=== PATIENT | female | born 1985 | race African-American/Black ===

== ENCOUNTER → 2019-10-31 | Outpatient (CLI) | payer MEDICAID | END | disposition home or self-care (01) | LOC: LAB 09:19 | PROVIDERS: ATTEND Obstetrics & Gynecology | DX: Z03.818 Encounter for observation for suspected exposure to other biological agents ruled out (principal) | CPT/HCPCS: C9803; U0003 ==

== ENCOUNTER 2019-11-01 15:10 | Inpatient (IN) | payer MEDICAID ==
[~2019-11-01] VITALS: Ht 157.5 cm; Wt 76.2 kg
[2019-11-01] MEDS ORDERED: BUTORPHANOL TARTRATE 2 MG/ML VIAL IV PRN ×2 (18:00→18:30)
[2019-11-01] MEDS: LACTATED RINGERS 1,000 ML IV SCH ×2 (18:02→19:17)
[2019-11-01] MEDS ORDERED: LACTATED RINGERS 1,000 ML IV SCH (18:23)
[2019-11-01] MEDS ORDERED: DEXT 5%/LR + PITOCIN 20UNITS/L 1,000 ML IV SCH (18:23)
[2019-11-01] MEDS ORDERED: MISOPROSTOL 100MCG TABLET VG SCH (18:30)
[2019-11-01 19:58] LABS: BASOPHILS % 0.3 % (0.0-2.0); EOSINOPHILS % 0.2 % (0.0-5.0); HEMATOCRIT. 38.8 % (36.0-48.0); HEMOGLOBIN. 13.3 g/dL (12.0-16.0); LYMPHOCYTES % 19.6 % (20.0-50.0); MEAN CORPUSCULAR HEMOGLOBIN 33.9 pg (28.0-32.0); MEAN CORPUSCULAR VOLUME 99.3 fL (81.0-99.0); MEAN PLATELET VOLUME 9.6 fl (7.4-10.4); MONOCYTES % 6.5 % (2.0-8.0); NEUTROPHILS % 73.4 % (40.0-76.0); PLATELET 192 x1000/uL (130-400); RED BLOOD CELL COUNT 3.91 mill/uL (4.2-5.4); RED CELL DISTRIBUTION WIDTH 13.7 % (11.6-14.6)
[2019-11-01 20:02] LABS: KETONES URINE 1+ (NEGATIVE); LEUKOCYTE ESTERASE URINE TRACE (NEGATIVE); NITRITE URINE NEGATIVE (NEGATIVE); OCCULT BLOOD URINE 2+ (NEGATIVE); PH URINE 7.5 (4.5-8.0); PROTEIN URINE NEGATIVE (NEGATIVE); SPECIFIC GRAVITY URINE 1.006 (1.005-1.030); UROBILINOGEN URINE 0.2 E.U./dL (0.2-1.0)
[2019-11-01 20:03] LABS: CLARITY URINE CLEAR (CLEAR); COLOR URINE YELLOW (YELLOW)
[2019-11-01 20:06] LABS: PARTIAL THROMBOPLASTIN TIME 28.9 sec (23.4-31.0); PROTHROMBIN TIME 10.3 sec (9.6-11.0)
[2019-11-01 20:08] LABS: *AMPHETAMINES SCREEN URINE NEGATIVE (NEGATIVE); *BARBITURATES SCREEN URINE NEGATIVE (NEGATIVE); *BENZODIAZEPINES SCREEN URINE NEGATIVE (NEGATIVE); *COCAINE SCREEN URINE NEGATIVE (NEGATIVE); METHADONE URINE SCREEN NEGATIVE (NEGATIVE)
[2019-11-01 20:09] LABS: OPIATES URINE SCREEN NEGATIVE (NEGATIVE); PHENCYCLIDINE URINE SCREEN NEGATIVE (NEGATIVE)
[2019-11-01] MEDS ORDERED: LANOLIN OINT 7GM TUBE TOP PRN (20:15)
[2019-11-01] MEDS ORDERED: MORPHINE SULFATE 2 MG/ML CPJ (NOT FOR IM USE) IV PRN (20:15)
[2019-11-01] MEDS ORDERED: IBUPROFEN 400MG TABLET PO PRN (20:15)
[2019-11-01] MEDS ORDERED: ONDANSETRON HCL 4MG/2ML INJ IV PRN ×2 (20:15→21:15)
[2019-11-01] MEDS ORDERED: MORPHINE SULFATE/PF 1MG/ML 10ML AMP ONE (20:32)
[2019-11-01 20:37] LABS: CANNABINOID URINE SCREEN PRESUMTIVE POSITIVE (NEGATIVE)
[2019-11-01 20:40] LABS: HEPATITIS B SURFACE ANTIGEN NEGATIVE
[2019-11-01] MEDS ORDERED: ETOMIDATE 2MG/ML 10ML VIAL IV ONE (21:10)
[2019-11-01] MEDS ORDERED: SUCCINYLCHOLINE CHLORIDE 200MG/10ML IV ONE (21:10)
[2019-11-01] MEDS ORDERED: OXYTOCIN 10 UNITS/ML 1ML ONE (21:10)
[2019-11-01] MEDS ORDERED: CEFAZOLIN SODIUM 1000MG/VIAL ONE (21:10)
[2019-11-01] MEDS ORDERED: MORPHINE SULFATE 4 MG/ML CPJ (NOT FOR IM USE) IV PRN (21:15)
[2019-11-01] MEDS ORDERED: DIPHENHYDRAMINE 50MG/ML VIAL IM PRN (21:15)
[2019-11-01] MEDS ORDERED: METOCLOPRAMIDE HCL 10MG/2ML VIAL IV PRN (21:15)
[2019-11-01] MEDS ORDERED: DIPHENHYDRAMINE 50MG/ML VIAL IV PRN ×2 (21:15)
[2019-11-01] MEDS ORDERED: NALOXONE HCL 0.4 MG/ML 1ML VIAL IV PRN ×2 (21:15)
[2019-11-01 23:40] VITALS: BP 106/50
[2019-11-02 00:15] VITALS: BP 105/52
[2019-11-02 04:00] VITALS: BP 105/44
[2019-11-02] MEDS: HYDROCODONE/ACETAMINOPHEN 10/325MG TABLET PO PRN ×3 (06:43→18:04)
[2019-11-02 07:30] VITALS: BP 105/48
[2019-11-02 09:49] LABS: BASOPHILS % 0.4 % (0.0-2.0); EOSINOPHILS % 0.1 % (0.0-5.0); HEMATOCRIT. 34.7 % (36.0-48.0); HEMOGLOBIN. 11.9 g/dL (12.0-16.0); LYMPHOCYTES % 9.6 % (20.0-50.0); MEAN CORPUSCULAR VOLUME 98.6 fL (81.0-99.0); MEAN PLATELET VOLUME 9.9 fl (7.4-10.4); NEUTROPHILS % 83.9 % (40.0-76.0); PLATELET 178 x1000/uL (130-400); RED BLOOD CELL COUNT 3.51 mill/uL (4.2-5.4); RED CELL DISTRIBUTION WIDTH 13.5 % (11.6-14.6)
[2019-11-02 16:00] VITALS: BP 117/63
[2019-11-02 19:30] VITALS: BP 127/66
[2019-11-02] MEDS: DOCUSATE SODIUM 100MG CAPSULE PO SCH (20:59)
[2019-11-03] MEDS: HYDROCODONE/ACETAMINOPHEN 10/325MG TABLET PO PRN ×4 (00:27→22:35)
[2019-11-03 04:00] VITALS: BP_SYST 127; BP_SYST 128; BP_DIAS 76; BP_DIAS 82
[2019-11-03 08:00] VITALS: BP 103/58
[2019-11-03 16:00] VITALS: BP 98/53
[2019-11-03 19:30] VITALS: BP 114/73
[2019-11-03] MEDS: DOCUSATE SODIUM 100MG CAPSULE PO SCH (21:13)
[2019-11-04 04:00] VITALS: BP 115/73
[2019-11-04] MEDS: HYDROCODONE/ACETAMINOPHEN 10/325MG TABLET PO PRN ×2 (04:42→09:26)
[2019-11-04] MEDS ORDERED: BISACODYL 10MG SUPP PR PRN (04:45)
[2019-11-04 07:30] VITALS: BP 100/58
[2019-11-04] MEDS ORDERED: IBUP-2030 MT (09:09)
[2019-11-06 19:06] LABS: CANNABINOID CONFIRMATION URINE Positive (.)
== END 2019-11-04 11:05 | disposition home or self-care (01) | DRG 540 ==
LOC: 8 EST LDRP 15:10 → OBSVTOIN 15:10 → 8 EST LDRP 16:56 → 8EST 23:39
PROVIDERS: ADMIT Obstetrics & Gynecology; ATTEND Obstetrics & Gynecology
PROC: 10D00Z1 Extraction of Products of Conception, Low, Open Approach (ICD-10-PCS; principal; 2019-11-01)
DX: O34.211 Maternal care for low transverse scar from previous cesarean delivery (principal); Z3A.38 38 weeks gestation of pregnancy; D62 Acute posthemorrhagic anemia; Z37.0 Single live birth; O99.03 Anemia complicating the puerperium
CPT/HCPCS: 36415; 80305; 80349; 81003; 85025; 86592; 86703; 86762; 86850; 86900; 87340; 88307; J0330; J0595; J0690; J1200; J2270; J2274; J2590; J3490